=== PATIENT | female | born 1980 | race Caucasian/White ===

== ENCOUNTER → 2020-09-04 | Outpatient (CLI) | payer BC ==
[2020-09-04 13:59] VITALS: BP 145/77; PULSE 84; RESP 18; TEMP 98.2; BMI 38.9
--- NOTE | 2020-09-04 15:08 | P.HPBAR ---
Bariatric H&P - History & Physicial H&P Date: 09/04/20 History & Physicial: Visit/CC: initial visit Patient initial contact: Initial weight: Initial weight in pounds: Height: 5 ft 5.5 in Initial BMI: Last weight: Current weight: 107.955 kg Current weight in pounds: 238.00 Current BMI: 38.9 [place] body weight (based on NIH guidelines): 57.833 kg Excess body weight loss: The patient is a 39 year-old F who presents for Bariatric Assessment. 39 year- old female presents for evaluation of weight loss surgery. States she has been thinking about weight loss surgery for quite some time. She is interested in sleeve gastrectomy. Her BMI is 39. She has already completed 4 out of 6 months supervised weight loss. Patient has no significant medical history. Some knee pain at times. No history of reflux. No DVT or dysphagia in the past. Only surgical history is and finger. Review of Systems The patient denies any acute changes in vision or hearing, no dysphagia or odynophagia, no chest pain or shortness of breath, no dysuria or hematuria, no headache, no runny nose, no rectal bleeding or melena, no unexplained weight loss Past Medical History Past Medical History: No Reported History History of Any Multi-Drug Resistant Organisms: None Reported Past Surgical History: Section, Orthopedic Surgery Additional Past Surgical History / Comment(s): 2002, 2004. c/s x 3. right pinky pinned Past Anesthesia/Blood Transfusion Reactions: No Reported Reaction Past Psychological History: No Psychological Hx Reported Smoking Status: Never smoker Past Alcohol Use History: Occasional Past Drug Use History: None Reported - Past Family History Father Family Medical History: No Reported History Mother Family Medical History: No Reported History Surgical - Exam Vital Signs Temp Pulse Resp BP 98.2 F 84 18 145/77 09/04/20 13:49 09/04/20 13:49 09/04/20 13:49 09/04/20 13:49 Physical exam: General: Well-developed, well-nourished HEENT: Normocephalic, sclerae nonicteric Abdomen: Nontender, nondistended Extremities: No edema Neuro: Alert and oriented Bariatric Assessment & Plan (1) Severe obesity Narrative/Plan: 39-year-old female interested in sleeve gastrectomy. Discussed options of sleeve gastrectomy and gastric bypass along with their associated risks and benefits in detail. Continue supervised weight loss program. We'll proceed with preoperative sleeve gastrectomy. We'll confirm approval from insurance company prior to surgical intervention. Status: Acute Bariatric Checklist Checklist: Plan: Checklist: EGD: 1. Hiatal hernia: 2. H. Pylori: HgbA1c: Vitamin D: Smoking: Never smoker Primary care physician referral: Dr. Fontana Psychiatry clearance: Cardiology clearance: Sleep study: Diet journal: VTE risk score: VTE risk level: Rehab needs at discharge:
== END | disposition home or self-care (01) ==
LOC: BARWHC3 13:46
PROVIDERS: ATTEND Surgery
DX: E66.01 Morbid (severe) obesity due to excess calories (principal); Z68.38 Body mass index [BMI] 38.0-38.9, adult
CPT/HCPCS: 99203

== ENCOUNTER → 2020-09-18 | Outpatient (CLI) | payer BC ==
[2020-09-18 18:14] LABS: HCT 40.3 % (37.2-46.3); HGB 12.6 g/dL (12.0-15.0); MCH 26.9 pg (27.0-32.0); MCHC 31.3 g/dL (32.0-37.0); MCV 86.1 fL (80.0-97.0); Mean Platelet Volume 10.3 fL (9.5-12.2); Platelet Count 307 X 10*3/uL (140-440); RBC 4.68 X 10*6/uL (4.10-5.20); RDW 15.2 % (11.5-14.5); WBC 6.04 X 10*3/uL (4.50-10.00)
[2020-09-18 22:38] LABS: Hemoglobin A1C 5.3 % (4.0-6.0)
[2020-09-19 03:01] LABS: African American GFR (CKD) 124.7 (60.0-200.0); Albumin 4.4 g/dL (3.80-4.90); Albumin/Globulin Ratio 1.57 (1.60-3.17); Anion Gap 13.1 mmol/L (4.00-12.00); BUN/Creat Ratio 14.29 Ratio (12.00-20.00); Calcium 9.3 mg/dL (8.7-10.3); Carbon Dioxide 20.9 mmol/L (21.6-31.8); Globulin 2.8 g/dL (1.6-3.3); Non-African American GFR(CKD) 107.6 (60.0-200.0); Potassium 4.2 mmol/L (3.5-5.5); Total Bilirubin 0.4 mg/dL (0.2-1.2); Total Protein 7.2 g/dL (6.2-8.2)
[2020-09-19 03:56] LABS: Folate, Serum 17.2 ng/mL
== END | disposition home or self-care (01) ==
LOC: LABWHC1 11:20
PROVIDERS: ATTEND Surgery
DX: E66.01 Morbid (severe) obesity due to excess calories (principal); K90.89 Other intestinal malabsorption; E55.9 Vitamin D deficiency, unspecified; Z71.51 Drug abuse counseling and surveillance of drug abuser
CPT/HCPCS: 36415; 80053; 80323; 82306; 82607; 82746; 83036; 83540; 84425; 85027; 93005

== ENCOUNTER 2021-01-06 09:35 | Day surgery (SDC) | payer BC ==
[2021-01-01 15:10] VITALS: BMI 36.0
[~2021-01-06 09:35] MED LIST: LACTATED RINGERS 1,000 ML IV SCH
[2021-01-06] MEDS ORDERED: LACTATED RINGERS 1,000 ML IV ONE (09:52)
[2021-01-06] MEDS ORDERED: MIDAZOLAM 2 MG/2 ML VIAL ONE (10:20)
[2021-01-06] MEDS ORDERED: PROPOFOL 10 MG/ML 20 ML VIAL IV ONE (10:20)
[2021-01-06] MEDS ORDERED: fentaNYL (PF) 50 MCG/ML 2 ML AMP ONE (10:20)
--- NOTE | 2021-01-06 10:24 | P.GSHP ---
History of Present Illness H&P Date: 01/06/21 Chief Complaint: Epigastric pain 40-year-old female here today for upper endoscopy. Patient is being evaluated for sleeve gastrectomy. Denies reflux. No dysphagia. Occasionally has upper abdominal pain. Past Medical History Past Medical History: No Reported History History of Any Multi-Drug Resistant Organisms: None Reported Past Surgical History: Section, Orthopedic Surgery Additional Past Surgical History / Comment(s): 2002, 2004. c/s x 3. right pinky pinned Past Anesthesia/Blood Transfusion Reactions: No Reported Reaction Smoking Status: Never smoker - Past Family History Father Family Medical History: No Reported History Mother Family Medical History: No Reported History Medications and Allergies Home Medications Medication Instructions Recorded Confirmed Type buPROPion SR [Wellbutrin Sr] 100 mg PO DAILY 09/04/20 01/01/21 History Allergies Allergy/AdvReac Type Severity Reaction Status Date / Time No Known Allergies Allergy Verified 01/01/21 15:03 Surgical - Exam Physical exam: General: Well-developed, well-nourished HEENT: Normocephalic, sclerae nonicteric Abdomen: Nontender, nondistended Extremities: No edema Neuro: Alert and oriented Assessment and Plan (1) Epigastric pain Narrative/Plan: Will proceed with upper endoscopy Current Visit: Yes Status: Acute Code(s): R10.13 - EPIGASTRIC PAIN SNOMED Code(s): 52220063
--- NOTE | 2021-01-06 10:31 | P.PCN ---
Date of Procedure: 01/06/21 Procedure(s) Performed: Preoperative Dx: Epigastric pain Postoperative Dx: Gastritis with small erosions, mild distal esophagitis, small sliding hiatal hernia Procedure: EGD with Bx Anesthesia: Sedation Endoscopist: Dr. Wu Specimens: Antrum, GE junction Endoscopic Procedure: The patient was on the endoscopy table in the left decubitus position. The Olympus gastroscope was inserted into the oropharynx and passed under direct visualization to the region of the third portion of the duodenum. From that point the scope was slowly withdrawn inspecting all surfaces carefully. There were no neoplastic inflammatory or polypoid lesions throughout the duodenum. The pylorus was widely patent. The stomach was carefully inspected. There was gastritis present with a few small erosions small sliding hiatal hernia. At the GE junction there was a single area of inflammatory change. A biopsy of the GE junction place. The remainder the esophagus was examined and appeared normal. The patient was then taken to the recovery room in stable condition per anesthesia guidelines. Recommendations: Begin antiacid therapy. Follow-up bariatric clinic to discuss timing sleeve gastrectomy.
[2021-01-06 10:44] VITALS: RESP 16
[2021-01-06 11:22] VITALS: BP 131/84; PULSE 75
== END 2021-01-06 11:39 | disposition home or self-care (01) ==
LOC: ORWHC2ENDO 09:35
PROVIDERS: ATTEND Surgery
DX: K29.50 Unspecified chronic gastritis without bleeding (principal); K44.9 Diaphragmatic hernia without obstruction or gangrene; K20.90 Esophagitis, unspecified without bleeding
CPT/HCPCS: 43239; 81025; 88305; J2250; J3010; J2704

== ENCOUNTER → 2021-01-13 | Outpatient (CLI) | payer BC ==
[2021-01-13 12:25] VITALS: BMI 36.8
== END | disposition home or self-care (01) ==
LOC: BARWHC3 08:54
PROVIDERS: ATTEND Surgery
DX: E66.01 Morbid (severe) obesity due to excess calories (principal); Z71.3 Dietary counseling and surveillance
CPT/HCPCS: 97804

== ENCOUNTER → 2021-01-20 | Outpatient (CLI) | payer BC ==
[2021-01-20 14:58] VITALS: BP 178/101; PULSE 104; TEMP 98; BMI 38.9
--- NOTE | 2021-01-20 15:25 | P.BASOAP ---
Subjective Progress Note Date: 01/20/21 Principal diagnosis: Morbid obesity Patient returns for evaluation. Underwent EGD 01/06 showing gastritis with small erosions, mild esophagitis, hiatal hernia. Patient still denies any significant reflux symptoms. No other significant comorbidities. NM currently 39.0. Patient remains interested in sleeve gastrectomy. Objective - Vital Signs Vital signs: Vital Signs Temp 98 F 01/20/21 14:54 Pulse 104 H 01/20/21 14:54 Resp BP 178/101 01/20/21 14:54 Pulse Ox Intake & Output 01/19/21 01/20/21 01/20/21 18:59 06:59 18:59 Weight 107.955 kg - Exam Abdomen: Soft, nontender, nondistended Assessment/Plan (1) Severe obesity Narrative/Plan: Patient doing well at this time. Surgical consent form reviewed in detail. Patient remains interested in sleeve gastrectomy. We'll tenderly proceed with laparoscopic sleeve gastrectomy with repair hiatal hernia in the next 2-4 weeks. The risks of bleeding, infection, stenosis, stricture, leak, abscess, fistula formation, peritonitis, poor weight loss, reflux, vomiting, conversion to an open procedure, aborting sleeve gastrectomy, NM, PE, DVT, and were discussed. The patient understands and wishes to proceed. Plan: Date: 01/20/21 Initial Weight: Initial BMI: Current Weight: 107.955 kg Current BMI: 38.9 Type of Surgery: Total Volume in Band: Previous Volume: Volume Removed: Volume Added: Band Size:
== END | disposition home or self-care (01) ==
LOC: BARWHC3 14:02
PROVIDERS: ATTEND Surgery
DX: E66.01 Morbid (severe) obesity due to excess calories (principal); Z68.38 Body mass index [BMI] 38.0-38.9, adult; Z71.3 Dietary counseling and surveillance
CPT/HCPCS: 99211

== ENCOUNTER → 2021-02-06 | Outpatient (CLI) | payer BC ==
[2021-02-06 14:28] LABS: Basophils # (A) 0.1 k/uL (0-0.2); Basophils % (A) 1 %; Eosinophils # (A) 0.1 k/uL (0-0.7); Eosinophils % (A) 1 %; HCT 44.4 % (34.0-46.0); HGB 14.1 gm/dL (11.4-16.0); Hypochromasia Slight; Lymphocytes # (A) 1.7 k/uL (1.0-4.8); Lymphocytes % (A) 18 %; MCH 28.2 pg (25.0-35.0); MCHC 31.7 g/dL (31.0-37.0); MCV 88.9 fL (80.0-100.0); Mean Platelet Volume 7.8; Monocytes # (A) 0.4 k/uL (0-1.0); Monocytes % (A) 5 %; Neutrophils # (A) 6.9 k/uL (1.3-7.7); Neutrophils % (A) 73 %; Platelet Count 318 k/uL (150-450); RDW 15.2 % (11.5-15.5); WBC 9.4 k/uL (3.8-10.6)
[2021-02-06 14:40] LABS: ALT 11 U/L (4-34); AST 29 U/L (14-36); African American GFR (CKD) >90 (>60 ml/min/1.73 sqM); Albumin 4.6 g/dL (3.5-5.0); Alkaline Phosphatase 70 U/L (38-126); Anion Gap 11 mmol/L; Blood Urea Nitrogen 19 mg/dL (7-17); Calcium 9.4 mg/dL (8.4-10.2); Carbon Dioxide 22 mmol/L (22-30); Chloride 102 mmol/L (98-107); Glucose 85 mg/dL (74-99); Non-African American GFR(CKD) >90 (>60 ml/min/1.73 sqM); Potassium 4.1 mmol/L (3.5-5.1); Sodium 135 mmol/L (137-145); Total Bilirubin 0.4 mg/dL (0.2-1.3); Total Protein 7.7 g/dL (6.3-8.2)
== END | disposition home or self-care (01) ==
LOC: LABPAT 13:29
PROVIDERS: ATTEND Surgery
DX: Z01.812 Encounter for preprocedural laboratory examination (principal)
CPT/HCPCS: 36415; 80053; 85025

== ENCOUNTER 2021-02-09 10:15 | Inpatient (IN) | payer BC ==
[~2021-02-09 10:15] MED LIST changes: +DEXAMETHASONE SOD PHOSPHATE 4 MG/ML 1 ML VIAL IV ONE; +ENOXAPARIN 40 MG/0.4 ML SYRINGE SQ PRN; +HYDROmorphone 0.5 MG/0.5 ML SYRINGE IVP PRN; -LACTATED RINGERS 1,000 ML IV SCH; +LIDOCAINE 1% (10MG/ML) FOR IV START INTRADERMA PRN; +MIDAZOLAM 2 MG/2 ML VIAL IV PRN; +ONDANSETRON 4 MG/2 ML VIAL IVP ONE
[2021-02-09] MEDS: LACTATED RINGERS 1,000 ML IV SCH (12:40)
--- NOTE | 2021-02-09 12:51 | P.GSHP ---
History of Present Illness H&P Date: 02/09/21 Chief Complaint: Morbid obesity 40-year-old female here today for elective sleeve gastrectomy with repair hiatal hernia. Patient was initially seen in August. At the time the patient's BMI was 39. Patient without reflux symptoms. No history of DVT or dysphagia in the past. Recent upper endoscopy showed gastritis with small erosions and a hiatal hernia. Past Medical History Past Medical History: No Reported History Additional Past Medical History / Comment(s): hiatal hernia History of Any Multi-Drug Resistant Organisms: None Reported Past Surgical History: Section, Orthopedic Surgery Additional Past Surgical History / Comment(s): 2002, 2004. c/s x 3, EGD,. right pinky pinned Past Anesthesia/Blood Transfusion Reactions: No Reported Reaction Smoking Status: Never smoker - Past Family History Father Family Medical History: No Reported History Mother Family Medical History: No Reported History Medications and Allergies Home Medications Medication Instructions Recorded Confirmed Type buPROPion SR [Wellbutrin Sr] 300 mg PO DAILY 09/04/20 02/09/21 History Omeprazole [PriLOSEC] 20 mg PO AC-BRKFST 02/05/21 02/09/21 History Allergies Allergy/AdvReac Type Severity Reaction Status Date / Time No Known Allergies Allergy Verified 02/05/21 17:17 Surgical - Exam Vital Signs Temp Pulse Resp BP Pulse Ox 97.6 F 98 17 174/83 100 02/09/21 12:29 02/09/21 12:29 02/09/21 12:29 02/09/21 12:29 02/09/21 12:29 Physical exam: General: Well-developed, well-nourished HEENT: Normocephalic, sclerae nonicteric Abdomen: Nontender, nondistended Extremities: No edema Neuro: Alert and oriented Assessment and Plan (1) Severe obesity Narrative/Plan: 40-year-old female here for elective laparoscopic sleeve gastrectomy with repair of hiatal hernia. The risks of bleeding, infection, stenosis, stricture, leak, abscess, fistula formation, peritonitis, poor weight loss, reflux, vomiting, conversion to an open procedure, aborting sleeve gastrectomy, [place], PE, DVT, and were discussed. The patient understands and wishes to proceed. Current Visit: No Status: Acute Code(s): E66.01 - MORBID (SEVERE) OBESITY DUE TO EXCESS CALORIES SNOMED Code(s): 33773053099056
[2021-02-09] MEDS ORDERED: SCOPOLAMINE 1.5MG/72HR PATCH TRANSDERM ONE (14:42)
[2021-02-09] MEDS ORDERED: NEOSTIGMINE 1 MG/ML 10 ML VIAL ONE (15:06)
[2021-02-09] MEDS ORDERED: LIDOCAINE 1% INJ 10MG/ML (20 ML MDV) ONE (15:06)
[2021-02-09] MEDS ORDERED: SUCCINYLCHOLINE CHLORIDE 100 MG/5 ML SYR IV ONE (15:06)
[2021-02-09] MEDS ORDERED: HYDROmorphone (PF) 1 MG/ML ONE (15:06)
[2021-02-09] MEDS ORDERED: ROCURONIUM 10 MG/ML (5 ML VIAL) IV ONE (15:06)
[2021-02-09] MEDS ORDERED: PROPOFOL 10 MG/ML 20 ML VIAL IV ONE (15:06)
[2021-02-09] MEDS ORDERED: GLYCOPYRROLATE 0.2 MG/ML 2 ML VIAL ONE (15:06)
[2021-02-09] MEDS ORDERED: MIDAZOLAM 2 MG/2 ML VIAL ONE (15:06)
[2021-02-09] MEDS ORDERED: .fentaNYL (PF) 50 MCG/ML 2 ML AMP ONE (15:06)
[2021-02-09] MEDS ORDERED: LACTATED RINGERS 1,000 ML IV ONE (15:35)
[2021-02-09] MEDS ORDERED: BUPIVACAIN-EPI 0.25%-1:200,000 30 ML VIAL SQ ONE ×2 (15:35)
[2021-02-09] MEDS ORDERED: HYDROmorphone 1 MG/ML 1 ML SYRINGE IVP PRN (17:09)
[2021-02-09] MEDS ORDERED: diphenhydrAMINE 50 MG/ML 1 ML VIAL IVP PRN (17:09)
[2021-02-09] MEDS ORDERED: HYOSCYAMINE ORAL DROPS 1.875 MG/15 ML BOTTLE PO PRN (17:09)
[2021-02-09] MEDS ORDERED: NALOXONE 0.4 MG/ML 1 ML VIAL IV PRN (17:09)
--- NOTE | 2021-02-09 17:13 | P.OP ---
Date of Procedure: 02/09/21 Procedure(s) Performed: PREOPERATIVE DIAGNOSIS: Severe obesity POSTOPERATIVE DIAGNOSIS: Same PROCEDURE: Laparoscopic sleeve gastrectomy with repair hiatal hernia SURGEON: Jazmin EBL: Minimal ANESTHESIA: General COMPLICATIONS: None OPERATIVE PROCEDURE: Patient was placed in the operating table in the supine p osition. She was placed under general anesthesia at that time. The abdomen was prepped and draped in sterile fashion after the patient was placed in lithotomy. A 5 mm optical trocar was used to enter the abdominal cavity in the left upper quadrant. Insufflation took place to 15 millimeters mercury. An additional right subxiphoid 5 mm trocar was then placed under direct relation and then removed. 2 additional 5 mm trochars were placed in the right upper quadrant and left upper quadrant under direct visualization and a 15 mm trocar in the supraumbilical location. The liver was retracted using a medium Maren liver retractor through the right subxiphoid trocar site. The hiatus was inspected. The patient had a small to moderate sized hiatal hernia. Circumferentially the phrenoesophageal ligament was incised identifying the actual defect. The right diaphragmatic crura was well visualized. A small vessel was seen traversing the gastrohepatic ligament and this was clipped using a 12 mm clipper. I was able to bluntly dissect and visualize the left diaphragmatic crura. At that point I moved to the mid aspect of the greater curvature the stomach. The short gastric vasculature was divided using a LigaSure device proximally. I then switched and divided the short gastrics distally to a 3-4 cm from the pylorus. The dissection took place up to the left diaphragmatic crura at that point. The posterior short gastrics were likewise divided using the LigaSure device. Once the stomach was fully mobilized the blunt tipped 40-Kosovan bougie dilator was advanced into the stomach and advanced all the way to the prepyloric location. A black echelon 60 stapler with staple line reinforcement was utilized and fired tangentially across the antrum taking care to avoid narrowing at the incisura angularis. Subsequent firings of the stapler took place. A total of 4 green echelon 60 staplers with seam guard took place proximally staying on the outer edge of our dilator. The oral gastric tube was reinserted. The stomach was insufflated with approximately 100 mL of methylene blue. No evidence of leak or obstruction was seen. The hiatus was then addressed once again. 2 separate 2-0 Ethibond sutures were used to reapproximate the crura posteriorly. These were tied down using the timeout device. This adequately closed the diaphragmatic hernia. Tisseel fibrin glue was then sprayed along the entire length of the staple line. No bleeding was identified. The stomach remnant was removed from the 15 mm trocar site without difficulty. The fascia at the 15 more site was closed using interrupted 0 Vicryl sutures with the laparoscopic suture passer and Good Amparo technique. The insufflation was evacuated. The skin at all 5 incisions were closed using 4-0 Monocryl sutures. Skin glue was then applied. DISPOSITION: Stable to recovery room
[2021-02-09] MEDS ORDERED: HYDROmorphone 0.5 MG/0.5 ML SYRINGE IVP ONE (17:49)
[2021-02-09] MEDS: ACETAMINOPHEN IV (For NPO) 1,000 MG in EMPTY BAG 1 BAG IVPB SCH (20:58)
[2021-02-09] MEDS: ONDANSETRON 4 MG/2 ML VIAL IVP PRN (21:00)
[2021-02-09] MEDS: ALBUTEROL NEBULIZED 2.5 MG/3 ML INHALATION SCH (21:57)
[2021-02-10] MEDS: ACETAMINOPHEN IV (For NPO) 1,000 MG in EMPTY BAG 1 BAG IVPB SCH ×3 (00:20→11:32)
[2021-02-10] MEDS: 0.9% NACL WITH KCL 20 MEQ/L 1,000 ML IV SCH ×4 (00:20→17:39)
[2021-02-10] MEDS: ONDANSETRON 4 MG/2 ML VIAL IVP PRN ×3 (03:00→17:40)
[2021-02-10] MEDS: ENOXAPARIN 40 MG/0.4 ML SYRINGE SQ SCH ×2 (03:00→14:57)
[2021-02-10] MEDS: PANTOPRAZOLE 40 MG/10 ML VIAL IV SCH (07:17)
[2021-02-10] MEDS: METOCLOPRAMIDE 5 MG/ML 2 ML VIAL IVP PRN ×3 (07:24→21:21)
[2021-02-10 08:30] VITALS: RESP 16
[2021-02-10] MEDS: LACTATED RINGERS 1,000 ML IV SCH (09:23)
[2021-02-10] MEDS: ALBUTEROL NEBULIZED 2.5 MG/3 ML INHALATION SCH ×4 (09:33→19:12)
[2021-02-10 11:18] LABS: Basophils # (A) 0.01 X 10*3/uL (0.00-0.10); Basophils % (A) 0.1 %; Eosinophils # (A) 0 X 10*3/uL (0.04-0.35); Eosinophils % (A) 0 %; HCT 41.4 % (37.2-46.3); HGB 12.6 g/dL (12.0-15.0); Lymphocytes # (A) 0.67 X 10*3/uL (0.90-5.00); Lymphocytes % (A) 6.5 %; MCH 26.6 pg (27.0-32.0); MCHC 30.4 g/dL (32.0-37.0); MCV 87.5 fL (80.0-97.0); Mean Platelet Volume 10.9 fL (9.5-12.2); Monocytes # (A) 0.46 X 10*3/uL (0.20-1.00); Monocytes % (A) 4.5 %; Neutrophils # (A) 9.05 X 10*3/uL (1.80-7.70); Neutrophils % (A) 88.4 %; Platelet Count 271 X 10*3/uL (140-440); RBC 4.73 X 10*6/uL (4.10-5.20); RDW 15.6 % (11.5-14.5); WBC 10.24 X 10*3/uL (4.50-10.00)
[2021-02-10 11:23] LABS: African American GFR (CKD) 131.2 (60.0-200.0); Anion Gap 17.7 mmol/L (10.00-18.00); Blood Urea Nitrogen 11.1 mg/dL (9.0-27.0); Calcium 8.6 mg/dL (8.7-10.3); Carbon Dioxide 11.3 mmol/L (20.0-27.5); Magnesium 1.9 mg/dL (1.5-2.4); Non-African American GFR(CKD) 113.2 (60.0-200.0); Phosphorus 2.6 mg/dL (2.4-5.1); Potassium 4.5 mmol/L (3.5-5.5)
--- NOTE | 2021-02-10 11:59 | P.PN ---
<Sandra Michel - Last Filed: 02/10/21 11:51> Subjective Progress Note Date: 02/10/21 CHIEF COMPLAINT: Severe obesity HISTORY OF PRESENT ILLNESS: Patient is postop day #1 status post laparoscopic sleeve gastrectomy with repair of hiatal hernia. Patient reports her pain is controlled. She complains of nausea yesterday. She did have one episode of vomiting this morning. She denies any flatus. She is scheduled for her upper GI. Afebrile. WBC 10.24 Hgb 12.6 platelets 271 sodium 136 potassium 4.5 creatinine 0.6 magnesium 1.9 PHYSICAL EXAM: VITAL SIGNS: Reviewed. GENERAL: Well-developed in no acute distress. HEENT: No sclera icterus. Extraocular movements grossly intact. Moist buccal mucosa. Head is atraumatic, normocephalic. ABDOMEN: Soft. Nondistended. Incision sites clean dry and intact. NEUROLOGIC: Alert and oriented. Cranial nerves II through XII grossly intact. ASSESSMENT: 1. Severe obesity status post laparoscopic sleeve gastrectomy with repair of hiatal hernia PLAN: -Awaiting upper GI to be completed before starting bariatric clear liquid diet -Continue antiemetics -Continue IV fluids -Continue Mylicon drops -Encourage patient to ambulate -GI prophylaxis Protonix and DVT prophylaxis Lovenox Physician Home Appliance Tech note has been reviewed by physician. Signing provider agrees with the documented findings, assessment, and plan of care. Objective - Vital Signs Vital signs: Vital Signs Temp 98.5 F 02/10/21 08:00 Pulse 79 02/10/21 08:00 Resp 16 02/10/21 08:00 BP 133/80 02/10/21 08:00 Pulse Ox 100 02/10/21 08:00 Intake & Output 02/09/21 02/10/21 02/10/21 18:59 06:59 18:59 Intake Total 1550 1200 Output Total 10 600 Balance 1540 600 Weight 102.7 kg Intake: IV 1550 Intake, IV Titration 1100 Amount 0.9% NaCl with KCl 20 Meq 900 /l 1,000 ml @ 150 mls/hr IV .Q6H40M [facility] Rx#: [id number] ACETAMINOPHEN IV (For NPO 200 ) 1,000 mg In Empty Bag 1 bag @ 400 mls/hr IVPB Q6HR [facility] Rx#:[id number] Oral 100 Output: Urine 600 Estimated Blood Loss 10 Other: # Bowel Movements 1 - Labs CBC & Chem 7: 02/10/21 06:00 02/10/21 06:00 Labs: Abnormal Lab Results - Last 24 Hours (Table) 02/10/21 02/10/21 Range/Units 06:00 06:00 WBC 10.24 H (4.50-10.00) X 10*3/uL MCH 26.6 L (27.0-32.0) pg MCHC 30.4 L (32.0-37.0) g/dL RDW 15.6 H (11.5-14.5) % Immature Gran # 0.05 H (0.00-0.04) X 10*3/uL Neutrophils # 9.05 H (1.80-7.70) X 10*3/uL Lymphocytes # 0.67 L (0.90-5.00) X 10*3/uL Eosinophils # 0 L (0.04-0.35) X 10*3/uL Carbon Dioxide 11.3 L (20.0-27.5) mmol/L Calcium 8.6 L (8.7-10.3) mg/dL <Carl Wu - Last Filed: 02/10/21 16:08> Subjective as above. Patient had bed nausea last night with dry heaves. Limited upper GI obtained. We'll plan repeating upper GI when the patient's nausea has resolved. Add Toradol for pain control. Agree with IV Decadron. Ambulate. Objective - Vital Signs Vital signs: Vital Signs Temp 97.4 F L 02/10/21 14:00 Pulse 64 02/10/21 14:00 Resp 16 02/10/21 14:00 BP 145/88 02/10/21 14:00 Pulse Ox 100 02/10/21 14:00 Intake & Output 02/09/21 02/10/21 02/10/21 18:59 06:59 18:59 Intake Total 1550 1200 Output Total 10 600 Balance 1540 600 Weight 102.7 kg 102.7 kg Intake: IV 1550 Intake, IV Titration 1100 Amount 0.9% NaCl with KCl 20 Meq 900 /l 1,000 ml @ 150 mls/hr IV .Q6H40M [facility] Rx#: [id number] ACETAMINOPHEN IV (For NPO 200 ) 1,000 mg In Empty Bag 1 bag @ 400 mls/hr IVPB Q6HR [facility] Rx#:[id number] Oral 100 Output: Urine 600 Estimated Blood Loss 10 Other: # Bowel Movements 1 - Labs CBC & Chem 7: 02/10/21 06:00 02/10/21 06:00 Labs: Abnormal Lab Results - Last 24 Hours (Table) 02/10/21 02/10/21 Range/Units 06:00 06:00 WBC 10.24 H (4.50-10.00) X 10*3/uL MCH 26.6 L (27.0-32.0) pg MCHC 30.4 L (32.0-37.0) g/dL RDW 15.6 H (11.5-14.5) % Immature Gran # 0.05 H (0.00-0.04) X 10*3/uL Neutrophils # 9.05 H (1.80-7.70) X 10*3/uL Lymphocytes # 0.67 L (0.90-5.00) X 10*3/uL Eosinophils # 0 L (0.04-0.35) X 10*3/uL Carbon Dioxide 11.3 L (20.0-27.5) mmol/L Calcium 8.6 L (8.7-10.3) mg/dL Assessment and Plan (1) Severe obesity Current Visit: No Status: Acute Code(s): E66.01 - MORBID (SEVERE) OBESITY DUE TO EXCESS CALORIES SNOMED Code(s): 24683471079418
[2021-02-10 12:09] VITALS: BMI 34.9
[2021-02-10] MEDS: SIMETHICONE 40 MG/0.6 ML DROPS 2,000 MG/30 ML BOTTLE PO PRN ×2 (12:13→21:30)
--- NOTE | 2021-02-10 14:05 | FL ---
SINGLE CONTRAST UPPER GI EXAMINATION: CLINICAL HISTORY: 40-year-old female postop bariatric surgery and hiatal hernia repair. TECHNIQUE: Single contrast exam performed with only 15 ml Isovue-370 contrast. Total fluoroscopy time: 1 minute 51 seconds. Total images: 13. FINDINGS: The patient took only a few small swallows of oral contrast with hesitancy. We stopped at a total of 15 mL due to sensation of dry heaves. The small amount of contrast limits assessment but there is no obvious extravasation of contrast to suggest leak. There is eventual passage across the gastric sleev e into the distal stomach but residual contrast remains within the lower esophagus. A relative mild o bstruction is suspected. There may be trace post surgical free air on the left IMPRESSION: 1. We stopped the exam after only 15 mL of contrast was ingested due to the patient's sensation of dr y heaves and inability to tolerate more. 2. Limited assessment due to the small volume; no evident leak. 3. Suspect a mild relative obstruction likely due to some residual postoperative edema.
[2021-02-10] MEDS: DEXAMETHASONE SOD PHOSPHATE 4 MG/ML 1 ML VIAL IVP SCH ×3 (14:57→23:56)
[2021-02-10] MEDS: KETOROLAC 30 MG/ML 1 ML VIAL IVP SCH ×2 (17:39→23:55)
--- NOTE | 2021-02-10 17:45 | P.CONS ---
History of Present Illness - Reason for Consult Consult date: 02/10/21 - History of Present Illness Claire Washington, is a 40-year-old female patient of Dr. Fontana, who was admitted to [facility] by Dr. Wu, and underwent elective sleeve gastrectomy with hiatal hernia repair on 02/09/2021 medical consultation was requested for management while hospitalized. Patient has a known history of gastroesophageal reflux disease, and history of depression maintained on Wellbutrin SR, her surgical history is significant for and right hand surgery. She denies any cardiac disease or lung disease, she never smoked she drinks alcohol rarely. Patient was seen and examined on the medical floor, she is alert and oriented x 3 in no distress, she is complaining of nausea otherwise she denies any complaints there is no fever or chills no headache or dizziness no chest pain no shortness of breath no palpitation no cough no vomiting no abdominal pain no diarrhea no blood in the stools no burning with urination no frequency or urgency and no hematuria, there is no weakness or numbness in any of the extremities no change in vision speech or gait. Past Medical History Past Medical History: No Reported History Additional Past Medical History / Comment(s): hiatal hernia History of Any Multi-Drug Resistant Organisms: None Reported Past Surgical History: Section, Orthopedic Surgery Additional Past Surgical History / Comment(s): 2002, 2004. c/s x 3, EGD,. right pinky pinned Past Anesthesia/Blood Transfusion Reactions: No Reported Reaction Smoking Status: Never smoker - Past Family History Father Family Medical History: No Reported History Mother Family Medical History: No Reported History Medications and Allergies Home Medications Medication Instructions Recorded Confirmed Type buPROPion SR [Wellbutrin Sr] 300 mg PO DAILY 09/04/20 02/09/21 History Omeprazole [PriLOSEC] 20 mg PO AC-BRKFST 02/05/21 02/09/21 History Allergies Allergy/AdvReac Type Severity Reaction Status Date / Time No Known Allergies Allergy Verified 02/05/21 17:17 Physical Exam Vitals: Vital Signs Temp Pulse Pulse Resp BP Pulse Ox 02/10/21 14:00 97.4 F L 64 16 145/88 100 02/10/21 08:00 98.5 F 79 16 133/80 100 02/10/21 03:40 97.5 F L 72 19 142/79 100 02/09/21 21:39 83 127/85 95 02/09/21 20:40 70 157/84 98 02/09/21 20:24 92 155/102 96 02/09/21 20:09 81 159/101 96 02/09/21 19:54 95 149/105 96 02/09/21 19:39 87 158/97 97 02/09/21 19:25 72 149/91 98 02/09/21 19:09 92 150/92 95 02/09/21 18:54 88 160/100 96 02/09/21 18:39 97.7 F 80 16 154/96 94 L 02/09/21 18:16 99 20 160/72 98 02/09/21 18:01 87 18 164/69 98 02/09/21 17:45 79 18 186/76 99 02/09/21 17:30 73 18 173/77 99 02/09/21 17:09 97.7 F 96 16 149/68 96 Intake and Output 02/10/21 02/10/21 02/10/21 06:59 14:59 22:59 Intake Total 1200 Output Total 600 Balance 600 Intake: Intake, IV Titration 1100 Amount 0.9% NaCl with KCl 20 Meq 900 /l 1,000 ml @ 150 mls/hr IV .Q6H40M [facility] Rx#: [id number] ACETAMINOPHEN IV (For NPO 200 ) 1,000 mg In Empty Bag 1 bag @ 400 mls/hr IVPB Q6HR [facility] Rx#:[id number] Oral 100 Output: Urine 600 Other: # Bowel Movements 1 Weight 102.7 kg In general patient is alert and oriented x 3 in no distress HEENT head normocephalic and atraumatic Neck is supple no JVD no goiter no lymphadenopathy no carotid bruit Chest examination is clear to auscultation no crackles no wheezing Cardiac exam reveals regular heart sounds S1 and S2 no gallops no murmurs Abdomen is soft nontender no organomegaly with normal bowel sounds Extremity exam reveals no edema no cyanosis or clubbing Neurological examination reveals no gross focal deficits Results CBC & Chem 7: 02/10/21 06:00 02/10/21 06:00 Labs: Abnormal Lab Results - Last 24 Hours (Table) 02/10/21 02/10/21 Range/Units 06:00 06:00 WBC 10.24 H (4.50-10.00) X 10*3/uL MCH 26.6 L (27.0-32.0) pg MCHC 30.4 L (32.0-37.0) g/dL RDW 15.6 H (11.5-14.5) % Immature Gran # 0.05 H (0.00-0.04) X 10*3/uL Neutrophils # 9.05 H (1.80-7.70) X 10*3/uL Lymphocytes # 0.67 L (0.90-5.00) X 10*3/uL Eosinophils # 0 L (0.04-0.35) X 10*3/uL Carbon Dioxide 11.3 L (20.0-27.5) mmol/L Calcium 8.6 L (8.7-10.3) mg/dL Assessment and Plan Plan: Status post elective sleeve gastrectomy with repair of hiatal hernia on 02/09/2021 Underlying history of gastroesophageal reflux disease Underlying history of depression maintained on Wellbutrin Severe nausea postoperatively At this time patient was seen and examined, home medications reviewed and reordered For DVT prophylaxis she is maintained on Lovenox Will follow during this admission for medical management
[2021-02-11] MEDS: ENOXAPARIN 40 MG/0.4 ML SYRINGE SQ SCH (03:17)
[2021-02-11] MEDS: 0.9% NACL WITH KCL 20 MEQ/L 1,000 ML IV SCH (03:18)
[2021-02-11] MEDS: KETOROLAC 30 MG/ML 1 ML VIAL IVP SCH ×2 (05:28→12:17)
[2021-02-11] MEDS: DEXAMETHASONE SOD PHOSPHATE 4 MG/ML 1 ML VIAL IVP SCH ×2 (05:28→12:16)
[2021-02-11 07:36] VITALS: BP 153/77; PULSE 86; TEMP 98.9
[2021-02-11] MEDS: ALBUTEROL NEBULIZED 2.5 MG/3 ML INHALATION SCH ×2 (08:45→12:45)
[2021-02-11] MEDS ORDERED: buPROPion SR 100 MG TABLET.ER PO SCH (09:00)
[2021-02-11] MEDS: PANTOPRAZOLE 40 MG/10 ML VIAL IV SCH (09:10)
[2021-02-11 09:37] LABS: Basophils # (A) 0.01 X 10*3/uL (0.00-0.10); Basophils % (A) 0.1 %; Eosinophils # (A) 0 X 10*3/uL (0.04-0.35); Eosinophils % (A) 0 %; HCT 34.8 % (37.2-46.3); HGB 10.9 g/dL (12.0-15.0); Lymphocytes # (A) 0.61 X 10*3/uL (0.90-5.00); Lymphocytes % (A) 6.4 %; MCH 26.6 pg (27.0-32.0); MCHC 31.3 g/dL (32.0-37.0); MCV 84.9 fL (80.0-97.0); Mean Platelet Volume 11.5 fL (9.5-12.2); Monocytes # (A) 0.32 X 10*3/uL (0.20-1.00); Monocytes % (A) 3.4 %; Neutrophils # (A) 8.53 X 10*3/uL (1.80-7.70); Neutrophils % (A) 89.7 %; Platelet Count 286 X 10*3/uL (140-440); RDW 15.9 % (11.5-14.5); WBC 9.51 X 10*3/uL (4.50-10.00)
--- NOTE | 2021-02-11 10:00 | P.PN ---
Subjective Progress Note Date: 02/11/21 Claire Washington, is a 40-year-old female patient of Dr. Fontana, who was admitted to [facility] by Dr. Wu, and underwent elective sleeve gastrectomy with hiatal hernia repair on 02/09/2021 medical consultation was requested for management while hospitalized. Patient has a known history of g astroesophageal reflux disease, and history of depression maintained on Wellbutrin SR, her surgical history is significant for and right hand surgery. She denies any cardiac disease or lung disease, she never smoked she drinks alcohol rarely. Patient was seen and examined on the medical floor, she is alert and oriented x 3 in no distress, she is complaining of nausea otherwise she denies any complaints there is no fever or chills no headache or dizziness no chest pain no shortness of breath no palpitation no cough no vomiting no abdominal pain no diarrhea no blood in the stools no burning with urination no frequency or urgency and no hematuria, there is no weakness or numbness in any of the extremities no change in vision speech or gait. On 02/11/2021 patient alert and oriented 3. Patient reports significant improvement with her nausea and vomiting. Patient is currently on bariatric clear diet. Patient has been tolerating diet. Patient denies chest pain or shortness breath. Patient denies nausea vomiting or diarrhea. Patient denies any urinary burning or frequency. Objective - Vital Signs Vital signs: Vital Signs Temp 98.9 F 02/11/21 06:50 Pulse 86 02/11/21 07:51 Resp 16 02/11/21 07:51 BP 153/77 02/11/21 06:50 Pulse Ox 98 02/11/21 06:50 Intake & Output 02/10/21 02/11/21 02/11/21 18:59 06:59 18:59 Weight 102.7 kg Other: # Voids 2 - Exam In general patient is alert and oriented x 3 in no distress HEENT head normocephalic and atraumatic Neck is supple no JVD no goiter no lymphadenopathy no carotid bruit Chest examination is clear to auscultation no crackles no wheezing Cardiac exam reveals regular heart sounds S1 and S2 no gallops no murmurs Abdomen is soft nontender no organomegaly with normal bowel sounds Extremity exam reveals no edema no cyanosis or clubbing Neurological examination reveals no gross focal deficits - Labs CBC & Chem 7: 02/11/21 05:39 02/10/21 06:00 Labs: Abnormal Lab Results - Last 24 Hours (Table) 02/10/21 02/10/21 02/11/21 Range/Units 06:00 06:00 05:39 WBC 10.24 H (4.50-10.00) X 10*3/uL Hgb 10.9 L (12.0-15.0) g/dL Hct 34.8 L (37.2-46.3) % MCH 26.6 L 26.6 L (27.0-32.0) pg MCHC 30.4 L 31.3 L (32.0-37.0) g/dL RDW 15.6 H 15.9 H (11.5-14.5) % Immature Gran # 0.05 H (0.00-0.04) X 10*3/uL Neutrophils # 9.05 H 8.53 H (1.80-7.70) X 10*3/uL Lymphocytes # 0.67 L 0.61 L (0.90-5.00) X 10*3/uL Eosinophils # 0 L 0 L (0.04-0.35) X 10*3/uL Carbon Dioxide 11.3 L (20.0-27.5) mmol/L Calcium 8.6 L (8.7-10.3) mg/dL Assessment and Plan Plan: Status post elective sleeve gastrectomy with repair of hiatal hernia on 02/09/2021 Underlying history of gastroesophageal reflux disease Underlying history of depression maintained on Wellbutrin Severe nausea postoperatively. Improved At this time patient was seen and examined, home medications reviewed and reordered For DVT prophylaxis she is maintained on Lovenox Will follow during this admission for medical management
[2021-02-11 11:20] LABS: African American GFR (CKD) 131.2 (60.0-200.0); Albumin 3.8 g/dL (3.8-4.9); Albumin/Globulin Ratio 1.65 (1.60-3.17); Anion Gap 14.3 mmol/L (10.00-18.00); BUN/Creat Ratio 23.83 Ratio (12.00-20.00); Blood Urea Nitrogen 14.3 mg/dL (9.0-27.0); Calcium 8.5 mg/dL (8.7-10.3); Carbon Dioxide 13.7 mmol/L (20.0-27.5); Globulin 2.3 g/dL (1.6-3.3); Non-African American GFR(CKD) 113.2 (60.0-200.0); Potassium 4.2 mmol/L (3.5-5.5); Total Bilirubin 0.2 mg/dL (0.30-1.20); Total Protein 6.1 g/dL (6.2-8.2)
--- NOTE | 2021-02-11 12:15 | P.DS ---
<Sandra Michel - Last Filed: 02/11/21 12:09> Providers Expected date of discharge: 02/11/21 Hospital Course: Discharge diagnosis 1. Severe obesity status post laparoscopic sleeve gastrectomy with repair of hiatal hernia 2. Mild obstruction likely due to postoperative edema Hospital course This is a 40-year-old female with history of severe obesity. She is status post endoscopic sleeve gastrectomy and repair of hiatal hernia. Patient did have nausea and dry heaves. This has resolved. Upper GI was stopped after only 15 mL of contrast was adjusted due to patient's sensation of dry heaves and inability to tolerate more. Limited assessment due to small volume. No evident leak. Suspect mild relative obstruction likely due to some residual postoperative edema. Patient was started on dexamethasone. Patient is tolerating her clear liquid diet. Denies any difficulty with swallowing. She is having flatus. Has been up and ambulated. Her nausea has resolved. She is afebrile. She is stable for discharge. Please refer to chart for any further details. Physician Prefitter note has been reviewed by physician. Signing provider agrees with the documented findings, assessment, and plan of care. Patient Condition at Discharge: Stable Plan - Discharge Summary Discharge Rx Participant: Yes New Discharge Prescriptions: New bisacodyL [Dulcolax] 5 mg PO DAILY PRN #10 tab PRN Reason: Constipation Simethicone 40 mg/0.6 ml Drops [Mylicon Drops] 40 mg PO PCHS PRN #30 ml PRN Reason: Gas Omeprazole [PriLOSEC] 40 mg PO DAILY #30 cap Ondansetron Odt [Zofran Odt] 4 mg PO Q8HR PRN #9 tab PRN Reason: Nausea Acetaminophen Tab [Tylenol Tab] 650 mg PO Q4H PRN #30 tablet PRN Reason: Pain Continue buPROPion SR [Wellbutrin SR] 300 mg PO DAILY Discontinued Omeprazole [PriLOSEC] 20 mg PO [id number] Discharge Medication List buPROPion SR [Wellbutrin SR] 300 mg PO DAILY 09/04/20 [History] Acetaminophen Tab [Tylenol Tab] 650 mg PO Q4H PRN #30 tablet 02/11/21 [Rx] Omeprazole [PriLOSEC] 40 mg PO DAILY #30 cap 02/11/21 [Rx] Ondansetron Odt [Zofran Odt] 4 mg PO Q8HR PRN #9 tab 02/11/21 [Rx] Simethicone 40 mg/0.6 ml Drops [Mylicon Drops] 40 mg PO PCHS PRN #30 ml 02/11/21 [Rx] bisacodyL [Dulcolax] 5 mg PO DAILY PRN #10 tab 02/11/21 [Rx] [facility] 9:00 am Activity/Diet/Wound Care/Special Instructions: No lifting over 10 pounds You may shower. No soaking or tub baths for 2 weeks Very light activity until you are reevaluated at your follow up appointment with your surgeon Discharge Disposition: HOME SELF-CARE <Carl Wu - Last Filed: 02/11/21 12:42> Providers Date of admission: 02/09/21 11:49 Attending physician: Carl Wu Consults: 02/09/21 17:09 Consult Physician Routine Consulting Provider: Kirk Ham Consult Reason/Comments: Medical management Do you want consulting provider notified?: Yes Primary care physician: Dora Fontana - Discharge Diagnosis(es) (1) Severe obesity Current Visit: No Status: Acute Hospital Course: As above. Patient doing very well today. She has had about 35 ounces of liqui ds thus far. She is anxious to go home. No pain. Discussed repeating upper GI but I do not think that we'll change our management in any way. We'll discharge. Follow-up nurse visit on Tuesday.
== END 2021-02-11 14:06 | disposition home or self-care (01) | DRG 621 ==
LOC: 2ORMAIN 11:49 → 4SSUR 17:33
PROVIDERS: ADMIT Surgery; ATTEND Surgery
PROC: 0BQT4ZZ Repair Diaphragm, Percutaneous Endoscopic Approach (ICD-10-PCS; 2021-02-09)
PROC: 0DB64Z3 Excision of Stomach, Percutaneous Endoscopic Approach, Vertical (ICD-10-PCS; principal; 2021-02-09 13:05)
DX: E66.01 Morbid (severe) obesity due to excess calories (principal); K25.9 Gastric ulcer, unspecified as acute or chronic, without hemorrhage or perforation; K44.9 Diaphragmatic hernia without obstruction or gangrene; Z20.822 Contact with and (suspected) exposure to COVID-19; Z68.34 Body mass index [BMI] 34.0-34.9, adult; R11.10 Vomiting, unspecified; F32.A Depression, unspecified; R60.9 Edema, unspecified; M19.90 Unspecified osteoarthritis, unspecified site; R51.9 Headache, unspecified
CPT/HCPCS: 74240; 80051; 80053; 81025; 82310; 82565; 83735; 84100; 84520; 85025; 87635; 88307

== ENCOUNTER → 2021-02-13 | Outpatient (CLI) | payer BC ==
[2021-02-13 11:41] VITALS: BP 138/85; PULSE 102; TEMP 98.2; BMI 36.3
== END | disposition home or self-care (01) ==
LOC: BARWHC3 10:50
PROVIDERS: ATTEND Surgery
DX: E66.01 Morbid (severe) obesity due to excess calories (principal); Z68.36 Body mass index [BMI] 36.0-36.9, adult
CPT/HCPCS: 99211

== ENCOUNTER → 2021-02-17 | Outpatient (CLI) | payer BC ==
[2021-02-17 13:03] VITALS: BP 137/102; PULSE 91; RESP 16; TEMP 98.2; BMI 35.5
--- NOTE | 2021-02-17 14:35 | P.BASOAP ---
Subjective Progress Note Date: 02/17/21 Principal diagnosis: Morbid obesity Patient returns for recheck. Doing well since sleeve gastrectomy last week. She has lost 5 pounds. At least 40 ounces of liquids daily. Improving protein intake. No pain. Denies nausea or vomiting. No reflux symptoms. Objective - Vital Signs Vital signs: Vital Signs Temp 98.2 F 02/17/21 13:00 Pulse 91 02/17/21 13:00 Resp 16 02/17/21 13:00 BP 137/102 02/17/21 13:00 Pulse Ox Intake & Output 02/16/21 02/17/21 02/17/21 18:59 06:59 18:59 Weight 98.43 kg - Exam Abdomen: Soft, nondistended, incisions clean and dry Assessment/Plan (1) Morbid obesity Narrative/Plan: Patient doing well at this time. Continue dietary and exercise regimen. Foll ow-up 03/10. Check one month labs at that time. Plan: Date: 02/17/21 Initial Weight: 98.43 kg Initial BMI: 35.5 Current Weight: 98.43 kg Current BMI: 35.5 Type of Surgery: Vertical Sleeve Gastrectomy Total Volume in Band: Previous Volume: Volume Removed: Volume Added: Band Size:
== END | disposition home or self-care (01) ==
LOC: BARWHC3 12:46
PROVIDERS: ATTEND Surgery
DX: E66.01 Morbid (severe) obesity due to excess calories (principal); Z71.3 Dietary counseling and surveillance
CPT/HCPCS: 97803; 99211

== ENCOUNTER → 2021-03-10 | Outpatient (CLI) | payer BC ==
[2021-03-10 13:50] VITALS: BP 158/99; PULSE 113; RESP 16; TEMP 98.1; BMI 34.0
--- NOTE | 2021-03-10 15:10 | P.BASOAP ---
Subjective Progress Note Date: 03/10/21 Principal diagnosis: Morbid obesity Patient returns for recheck. Last seen 02/17. Patient's heart rate was somewhat elevated when she first arrived. She said she was nervous and walked a distance. Repeat heart rate 80. Denies pain, only mild heartburn at times. She had dysphagia and an episode of emesis after eating refried beans on one occasion. Drinking 40-50 ounces of liquids daily. Loss 9 pounds since last visit. Objective - Vital Signs Vital signs: Vital Signs Temp 98.1 F 03/10/21 13:48 Pulse 113 H 03/10/21 13:48 Resp 16 03/10/21 13:48 BP 158/99 03/10/21 13:48 Pulse Ox Intake & Output 03/09/21 03/10/21 03/10/21 18:59 06:59 18:59 Weight 94.347 kg - Exam Abdomen: Soft, nontender, nondistended Assessment/Plan (1) Morbid obesity Narrative/Plan: Patient doing well today. Check one month labs at this time. Patient will monitor her heart rate at home and notify me of any tachycardia issues. Increase liquids and protein intake. Continue antiacids. Follow-up 4 weeks. Plan: Date: 03/10/21 Initial Weight: 98.43 kg Initial BMI: 35.5 Current Weight: 94.347 kg Current BMI: 34.0 Type of Surgery: Total Volume in Band: Previous Volume: Volume Removed: Volume Added: Band Size:
== END | disposition home or self-care (01) ==
LOC: BARWHC3 13:28
PROVIDERS: ATTEND Surgery
DX: E66.01 Morbid (severe) obesity due to excess calories (principal); K90.89 Other intestinal malabsorption; E55.9 Vitamin D deficiency, unspecified; Z71.3 Dietary counseling and surveillance; Z68.34 Body mass index [BMI] 34.0-34.9, adult
CPT/HCPCS: 97803; 99211

== ENCOUNTER → 2021-03-19 | Outpatient (CLI) | payer BC ==
[2021-03-19 18:14] LABS: HCT 38.7 % (37.2-46.3); HGB 12.2 g/dL (12.0-15.0); MCH 26.5 pg (27.0-32.0); MCHC 31.5 g/dL (32.0-37.0); MCV 84.1 fL (80.0-97.0); Mean Platelet Volume 12.1 fL (9.5-12.2); Platelet Count 255 X 10*3/uL (140-440); RDW 16.7 % (11.5-14.5); WBC 7.34 X 10*3/uL (4.50-10.00)
[2021-03-19 18:48] LABS: African American GFR (CKD) 139.3 (60.0-200.0); Albumin 4.2 g/dL (3.8-4.9); Albumin/Globulin Ratio 1.62 (1.60-3.17); Anion Gap 12.2 mmol/L (10.00-18.00); BUN/Creat Ratio 19.2 Ratio (12.00-20.00); Blood Urea Nitrogen 9.6 mg/dL (9.0-27.0); Calcium 9.7 mg/dL (8.7-10.3); Carbon Dioxide 22.8 mmol/L (20.0-27.5); Globulin 2.6 g/dL (1.6-3.3); Non-African American GFR(CKD) 120.2 (60.0-200.0); Potassium 3.8 mmol/L (3.5-5.5); Total Bilirubin 0.2 mg/dL (0.30-1.20); Total Protein 6.8 g/dL (6.2-8.2)
[2021-03-20 01:02] LABS: Folate, Serum 6.2 ng/mL (4.40-31.00)
== END | disposition home or self-care (01) ==
LOC: LABWHC1 11:39
PROVIDERS: ATTEND Surgery
DX: E66.01 Morbid (severe) obesity due to excess calories (principal); K90.89 Other intestinal malabsorption; E55.9 Vitamin D deficiency, unspecified
CPT/HCPCS: 36415; 80053; 82306; 82607; 82746; 83540; 84425; 85027

== ENCOUNTER → 2021-03-19 | Outpatient (CLI) | payer BC ==
--- NOTE | 2021-03-20 12:07 | MM ---
Reason for exam: screening (asymptomatic). Baseline mammogram. History: Family history of breast cancer in maternal grandmother at age 65. Physical Findings: Nurse did not find any significant physical abnormalities on exam. MG 3D Screening Mammo W/Cad Bilateral CC and MLO view(s) were taken. There are scattered fibroglandular densities. There is no discrete abnormality. ASSESSMENT: Negative, BI-RAD 1 RECOMMENDATION: Routine screening mammogram of both breasts in 1 year.
== END ==
LOC: RADMAMWWP 10:31
PROVIDERS: ATTEND Family Medicine
DX: Z12.31 Encounter for screening mammogram for malignant neoplasm of breast (principal)
CPT/HCPCS: 77063; 77067

== ENCOUNTER → 2021-04-21 | Outpatient (CLI) | payer BC ==
[2021-04-21 13:12] VITALS: BP 145/95; PULSE 96; RESP 16; TEMP 98; BMI 31.3
--- NOTE | 2021-04-21 13:44 | P.BASOAP ---
Subjective Progress Note Date: 04/21/21 Principal diagnosis: morbid obesity morbid obesity patient returns the bariatric clinic for evaluation. Doing well since last visit. Complaining of some intermittent headaches at times. Excellent weight loss. She is down 17 pounds. Denies heartburn. She stopped taking her antiacids. Recent labs reviewed. Iron is low at 42. Hemoglobin stable. No rectal bleeding or melena. Heart rate is normal today. No pain. Objective - Vital Signs Vital signs: Vital Signs Temp 98 F 04/21/21 13:10 Pulse 96 04/21/21 13:10 Resp 16 04/21/21 13:10 BP 145/95 04/21/21 13:10 Pulse Ox Intake & Output 04/20/21 04/21/21 04/21/21 18:59 06:59 18:59 Weight 86.636 kg - Exam Abdomen: Soft, nontender, nondistended Assessment/Plan (1) Morbid obesity Narrative/Plan: patient doing well today. Continue dietary and exercise regimen. Follow-up 6 weeks. Check three-month labs at that time. If iron remains low begin iron supplementation.monitor symptoms off of antiacid therapy for now. Plan: Date: 04/21/21 Initial Weight: 98.43 kg Initial BMI: 35.5 Current Weight: 86.636 kg Current BMI: 31.3 Type of Surgery: Total Volume in Band: Previous Volume: Volume Removed: Volume Added: Band Size:
== END | disposition home or self-care (01) ==
LOC: BARWHC3 13:00
PROVIDERS: ATTEND Surgery
DX: E66.01 Morbid (severe) obesity due to excess calories (principal); Z68.31 Body mass index [BMI] 31.0-31.9, adult
CPT/HCPCS: 99211

== ENCOUNTER → 2021-09-22 | Outpatient (CLI) | payer BC ==
[2021-09-22 15:33] VITALS: BP 150/90; PULSE 89; RESP 16; TEMP 98.5; BMI 27.5
--- NOTE | 2021-09-22 15:40 | P.BASOAP ---
Subjective Progress Note Date: 09/22/21 Principal diagnosis: Morbid obesity patient returns for recheck. She was last seen in March. Patient has done well. She lost 23 pounds since her last visit. She has been stable at this weight for the last few weeks however. No heartburn. No significant headaches. Denies abdominal pain. Objective - Vital Signs Vital signs: Vital Signs Temp 98.5 F 09/22/21 15:30 Pulse 89 09/22/21 15:30 Resp 16 09/22/21 15:30 BP 150/90 09/22/21 15:30 Pulse Ox FiO2 Intake & Output 09/21/21 09/22/21 09/22/21 18:59 06:59 18:59 Weight 76.204 kg - Exam Abdomen: Soft, nontender, nondistended Assessment/Plan (1) Morbid obesity Narrative/Plan: 41-year-old female doing well after her sleeve gastrectomy last January. Patient has had poor follow-up but continues to do well. Continue monitoring off of antiacids. Check 6 month labs at this time. Revisit in 2 months. Plan: Date: 09/22/21 Initial Weight: 98.43 kg Initial BMI: 35.5 Current Weight: 76.204 kg Current BMI: 27.5 Type of Surgery: Total Volume in Band: Previous Volume: Volume Removed: Volume Added: Band Size:
== END ==
LOC: BARWHC3 15:21
PROVIDERS: ATTEND Surgery
DX: E66.01 Morbid (severe) obesity due to excess calories (principal); Z71.3 Dietary counseling and surveillance; Z68.27 Body mass index [BMI] 27.0-27.9, adult; Z98.84 Bariatric surgery status
CPT/HCPCS: 97803; 99211

== ENCOUNTER → 2023-12-20 | Outpatient (CLI) | payer BC ==
--- NOTE | 2023-12-21 11:06 | MM ---
Reason for Exam: Screening (asymptomatic). Last mammogram was performed 2 year(s) and 9 month(s) ago. Patient History: Menarche at age 14. First Full-Term at age 22. Patient has history of breast feeding. Maternal grandmother had breast cancer, age 65. Risk Values: Luisa 5 year model risk: 0.6%. NCI Lifetime model risk: 8.0%. Prior Study Comparison: 03/19/2021 Bilateral Screening Mammogram, [facility]. Tissue Density: There are scattered areas of fibroglandular density. Findings: Analyzed By CAD. There is no suspicious group of microcalcifications or new suspicious mass in either breast. Overall Assessment: Negative, BI-RAD 1 Management: Screening Mammogram of both breasts in 1 year. . Patient should continue monthly self-breast exams. A clinical breast exam by your physician is recommended on an annual basis. This exam should not preclude additional follow-up of suspicious palpable abnormalities. Note on Luisa scores and lifetime risk: 1. A Luisa score greater than 3% is considered moderate risk. If this is the case, consider specialist referral to assess eligibility for a risk reducing agent. 2. If overall lifetime risk for the development of breast cancer is 20% or higher, the patient may qualify for future screening with alternating mammogram and breast MRI. [facility], , 12/21/2023 11:03 AM. Electronically signed and approved by: Frantz Bustillo M.D. Radiolog[facility]
== END | disposition home or self-care (01) ==
LOC: RADMAMWWP 13:35
PROVIDERS: ATTEND Family Medicine
CPT/HCPCS: 77063; 77067

== ENCOUNTER → 2023-12-20 | Outpatient (CLI) | payer BC ==
[2023-12-20 13:18] VITALS: BP 145/82; PULSE 73; RESP 16; TEMP 98.3; BMI 28.6
--- NOTE | 2023-12-20 13:30 | P.BASOAP ---
Subjective Progress Note Date: 12/20/23 Principal diagnosis: Morbid obesity 43-year-old female returns for recheck. She was last seen 1.5 years ago. Underwent sleeve gastrectomy January 2021. Has kept most of her weight off. She is up slightly from her last visit. Currently at 175. She says she is 75 pounds down from her heaviest. No nausea or vomiting. Minimal episodes of reflux. Takes Tums periodically. Asking for a refill of omeprazole. Never had her labs drawn since her 1 month labs. Objective - Vital Signs Vital signs: Vital Signs Temp 98.3 F 12/20/23 13:15 Pulse 73 12/20/23 13:15 Resp 16 12/20/23 13:15 BP 145/82 12/20/23 13:15 Pulse Ox FiO2 Intake & Output 12/19/23 12/20/23 12/20/23 18:59 06:59 18:59 Weight 79.379 kg - Exam Abdomen: Soft, nontender, nondistended Assessment/Plan (1) Morbid obesity Narrative/Plan: 43-year-old female doing well after previous sleeve gastrectomy. Patient is quite happy with her decision to have the surgery. Good restriction still. Minimal reflux side effects. Continue intermittent omeprazole use. Will refill prescription. Check annual labs. Follow-up 1 year. Plan: Date: 12/20/23 Initial Weight: 98.43 kg Initial BMI: 35.5 Current Weight: 79.379 kg Current BMI: 28.6 Type of Surgery: Vertical Sleeve Gastrectomy Total Volume in Band: Previous Volume: Volume Removed: Volume Added: Band Size:
== END ==
LOC: BARWHC3 13:07
PROVIDERS: ATTEND Surgery
CPT/HCPCS: 99211

== ENCOUNTER → 2024-01-06 | Outpatient (CLI) | payer BC ==
[2024-01-06 15:12] LABS: Basophils # (A) 0.04 X 10*3/uL (0.00-0.10); Basophils % (A) 0.8 %; Eosinophils % (A) 1.9 %; HCT 33.6 % (37.2-46.3); Lymphocytes # (A) 1.64 X 10*3/uL (0.90-5.00); Lymphocytes % (A) 31.8 %; MCH 22.8 pg (27.0-32.0); MCHC 29.8 g/dL (32.0-37.0); MCV 76.5 FL (80.0-97.0); Mean Platelet Volume 11.2 FL (9.5-12.2); Monocytes # (A) 0.41 X 10*3/uL (0.20-1.00); NRBC Per 100 WBC 0 X 10*3/uL (0.00-0.01); Neutrophils # (A) 2.95 X 10*3/uL (1.80-7.70); Neutrophils % (A) 57.3 %; Platelet Count 305 X 10*3/uL (140-440); RBC 4.39 X 10*6/uL (4.10-5.20); RDW 17.4 % (11.5-14.5); WBC 5.15 X 10*3/uL (4.50-10.00)
[2024-01-06 15:42] LABS: ALT 13 U/L (8-44); AST 25 U/L (13-35); Albumin 4.4 g/dL (3.8-4.9); Albumin/Globulin Ratio 1.83 Ratio (1.60-3.17); Alkaline Phosphatase 62 U/L (41-126); BUN/Creat Ratio 17.17 Ratio (12.00-20.00); Blood Urea Nitrogen 10.3 mg/dL (9.0-27.0); Calcium 9.2 mg/dL (8.7-10.3); Carbon Dioxide 23.5 mmol/L (21.6-31.8); Chloride 104 mmol/L (96-109); Ferritin 9.8 ng/mL (10.0-291.0); Globulin 2.4 g/dL (1.6-3.3); Glucose 84 mg/dL (70-110); Iron 23 UG/DL (50-170); Sodium 139 mmol/L (135-145); Total Bilirubin 0.3 mg/dL (0.3-1.2); Total Protein 6.8 g/dL (6.2-8.2)
[2024-01-06 17:36] LABS: Reticulocyte % 0.97 % (0.10-1.80)
== END | disposition home or self-care (01) ==
LOC: LABWHC1 10:25
PROVIDERS: ATTEND Family Medicine
DX: E89.1 Postprocedural hypoinsulinemia (principal); K90.89 Other intestinal malabsorption; E55.9 Vitamin D deficiency, unspecified; R79.89 Other specified abnormal findings of blood chemistry
CPT/HCPCS: 36415; 80053; 82306; 82607; 82728; 82746; 83036; 83540; 84425; 85025; 85045